=== PATIENT | male | born 1990 | race Caucasian/White ===

== ENCOUNTER 2019-04-07 18:26 | Emergency (ER) | payer MEDICAID ==
[~2019-04-07] VITALS: Ht 185.4 cm; Wt 102.0 kg
[2019-04-07] MEDS ORDERED: ACETAMINOPHEN 325MG TABLET PO ONE (19:15)
[2019-04-07] MEDS ORDERED: IBUPROFEN 800MG TABLET PO ONE (20:15)
[2019-04-07] MEDS ORDERED: TETANUS, DIPHTHERIA, PERTUSSIS VAC/PF 0.5ML (>7YR OLD) IM ONE (20:15)
[2019-04-07 21:18] VITALS: BP 118/82
== END 2019-04-07 21:21 | disposition left against medical advice (07) ==
LOC: ER 19:27
DX: S02.651B Fracture of angle of right mandible, initial encounter for open fracture (principal); W22.8XXA Striking against or struck by other objects, initial encounter; Y93.89 Activity, other specified; Y92.89 Other specified places as the place of occurrence of the external cause; Y99.8 Other external cause status
CPT/HCPCS: 70486; 90471; 90715; 99284